=== PATIENT | female | born 1990 | race Caucasian/White ===

== ENCOUNTER 2018-07-28 19:19 | Emergency (ER) | payer BC ==
[2018-07-28 19:35] VITALS: BP 126/78; PULSE 79; TEMP 97.6; BMI 32.9
--- NOTE | 2018-07-28 20:23 | PDOC ---
History of Present Illness - General History Source: Patient Exam Limitations: No Limitations - History of Present Illness Initial Comments: 07/28/18 21:04 The patient is a 27 year old female at about 6 weeks gestation, with a significant PMH of asthma who presents to the emergency department with spotting and cramping beginning this afternoon. Patients LMP early May. Patient states she has an appointment to see a NAIL MILL WORKER for current . The patient denies chest pain, shortness of breath, headache and dizziness. Denies fever, chills, nausea, vomit, diarrhea and constipation. Denies dysuria, frequency, urgency and hematuria. Allergies: NKA Past surgical history: cystectomy from ovary during Social history: None reported <Brit Lu - Last Filed: 07/28/18 21:04> <Lashon Nair - Last Filed: 07/28/18 22:37> - General Chief Complaint: Vaginal Bleeding Stated Complaint: VAGINAL BLEEDING Time Seen by Provider: 07/28/18 19:48 Past History <Brit Lu - Last Filed: 07/28/18 21:04> - Suicide/Smoking/Psychosocial Hx Smoking History: Never smoked Have you smoked in the past 12 months: No Information on smoking cessation initiated: No Hx Alcohol Use: No Drug/Substance Use Hx: No <Lashon Nair - Last Filed: 07/28/18 22:37> - Past Medical History Allergies/Adverse Reactions: Allergies Allergy/AdvReac Type Severity Reaction Status Date / Time No Known Allergies Allergy Verified 07/28/18 19:33 Home Medications: Ambulatory Orders NK [No Known Home Medication] 07/28/18 *Physical Exam - Vital Signs Last Vital Signs Temp Pulse Resp BP Pulse Ox 97.6 F 79 18 126/78 100 07/28/18 19:33 07/28/18 19:33 07/28/18 19:33 07/28/18 19:33 07/28/18 19:33 - Physical Exam Comments: 07/28/18 21:04 GENERAL: Awake, alert, and fully oriented, in no acute distress HEAD: No signs of trauma EYES: PERRLA, EOMI, sclera anicteric, conjunctiva clear ENT: Auricles normal inspection, hearing grossly normal, nares patent, oropharynx clear without exudates. Moist mucosa NECK: Normal ROM, supple, no lymphadenopathy, JVD, or masses LUNGS: Breath sounds equal, clear to auscultation bilaterally. No wheezes, and no crackles HEART: Regular rate and rhythm, normal S1 and S2, no murmurs, rubs or gallops VAGINAL: (+)small amount of dark blood visualized in the os. No active bleeding. No adnexal tenderness. ABDOMEN: Soft, nontender, normoactive bowel sounds. No guarding, no rebound. No masses EXTREMITIES: Normal range of motion, no edema. No clubbing or cyanosis. No cords, erythema, or tenderness NEUROLOGICAL: Cranial nerves II through XII grossly intact. Normal speech, normal gait SKIN: Warm, Dry, normal turgor, no rashes or lesions noted. <Brit Lu - Last Filed: 07/28/18 21:04> - Vital Signs Last Vital Signs Temp Pulse Resp BP Pulse Ox 97.6 F 79 18 126/78 100 07/28/18 19:33 07/28/18 19:33 07/28/18 19:33 07/28/18 19:33 07/28/18 19:33 <Lashon Nair - Last Filed: 07/28/18 22:37> Moderate Sedation - Procedure Monitoring Vital Signs: Procedure Monitoring Vital Signs Temperature 97.6 F 07/28/18 19:33 Pulse Rate 79 07/28/18 19:33 Respiratory Rate 18 07/28/18 19:33 Blood Pressure 126/78 07/28/18 19:33 O2 Sat by Pulse Oximetry (%) 100 07/28/18 19:33 <Brit Lu - Last Filed: 07/28/18 21:04> - Procedure Monitoring Vital Signs: Procedure Monitoring Vital Signs Temperature 97.6 F 07/28/18 19:33 Pulse Rate 79 07/28/18 19:33 Respiratory Rate 18 07/28/18 19:33 Blood Pressure 126/78 07/28/18 19:33 O2 Sat by Pulse Oximetry (%) 100 07/28/18 19:33 <Lashon Nair - Last Filed: 07/28/18 22:37> ED Treatment Course - LABORATORY CBC & Chemistry Diagram: 07/28/18 20:22 07/28/18 20:22 - ADDITIONAL ORDERS Additional order review: Laboratory Results 07/28/18 20:22 Urine Color Yellow Urine Appearance Slcloudy Urine pH 5.0 Ur Specific [place] 1.031 Urine Protein 1+ H Urine Glucose (UA) Negative Urine Ketones Negative Urine Blood 3+ H Urine Nitrite Negative Urine Bilirubin Negative Urine Urobilinogen 2.0 H Ur Leukocyte Esterase Negative Urine WBC (Auto) 2 Urine RBC (Auto) 106 Ur Epithelial Cells Few Urine Bacteria Rare Urine Mucus Few 07/28/18 20:22 RBC 3.91 MCV 76.9 L MCHC 31.8 L RDW 17.8 H MPV 8.3 Neutrophils % 36.6 L Lymphocytes % 49.5 H Monocytes % 5.1 Eosinophils % 8.1 H Basophils % 0.7 <Brit Lu - Last Filed: 07/28/18 21:04> - LABORATORY CBC & Chemistry Diagram: 07/28/18 20:22 07/28/18 20:22 <Lashon Nair - Last Filed: 07/28/18 22:37> Medical Decision Making - Medical Decision Making 07/28/18 20:11 a/p: 27yo female at around 6 weeks gestation with cramping and spotting today -hx of last preg complicated by a cyst on the ovary that needed removal -has not seen NAIL MILL WORKER for this preg -no dysuria -nontoxic appearing -will send labs, ua, tvus 07/28/18 22:05 o+ on labs beta 42 no IUP on ultrasound, but thickened endometrium 07/28/18 22:17 discussed results with the patient pt will need a repeat beta in 2 days has a follow up lye boiler appt in 2 weeks answered all quesitons pt is stable for dc to home and repeat beta in 2 days <Lashon Nair - Last Filed: 07/28/18 22:37> *DC/Admit/Observation/Transfer - Attestations Scribe Attestion: 07/28/18 21:05 Documentation prepared by Brit Lu, acting as emergency medical dispatcher for Lashon Nair DO. <Brit Lu - Last Filed: 07/28/18 21:04> - Discharge Dispostion Decision to Admit order: No - Attestations Physician Attestion: 07/28/18 22:37 I, Dr. Lashon Nair, DO, attest that this document has been prepared under my direction and personally reviewed by me in its entirety. I further attest, that it accurately reflects all work, treatment, procedures and medical decision -making performed by me. <Lashon Nair - Last Filed: 07/28/18 22:37> Diagnosis at time of Disposition: Threatened in first trimester - Discharge Dispostion Disposition: HOME Condition at time of disposition: Stable - Referrals Referrals: ON STAFF,NOT [Primary Care Provider] - Lexie Bradley MD [Staff Physician] - - Patient Instructions Printed Discharge Instructions: DI for Threatened Additional Instructions: Please follow up in the ED in 2 days for a repeat Beta HCG. Please keep your appointment with your INFORMATION TECHNOLOGY TECHNICIAN. If you start to bleed more than 2 pads an hour for more than 2 hours please return to the ED immediately. Please return to the ED with any further concerns or complaints.
[2018-07-28 20:54] LABS: BASO % 0.7 % (0-2.0); EOS % 8.1 % (0-4.5); HEMOGLOBIN 9.6 GM/dL (10.7-15.3); LYMPH % 49.5 % (8-40); MCH 24.4 pg (25.7-33.7); MCHC 31.8 g/dl (32.0-36.0); MEAN CELL VOLUME 76.9 fl (80-96); MEAN PLT VOLUME 8.3 fl (7.5-11.1); MONO % 5.1 % (3.8-10.2); NEUT % 36.6 % (42.8-82.8); PLATELET COUNT 252 K/MM3 (134-434); RBC 3.91 M/mm3 (3.60-5.2); RDW 17.8 % (11.6-15.6); WHITE BLOOD COUNT 4.7 K/mm3 (4.0-10.0)
[2018-07-28 20:55] LABS: URINE APPEARANCE SLCLOUDY; URINE BILIRUBIN NEGATIVE (<2.0 mg/dL); URINE COLOR YELLOW; URINE GLUCOSE (UA) NEGATIVE (NEGATIVE); URINE KETONE NEGATIVE (NEGATIVE); URINE LEUK ESTERASE NEGATIVE (NEGATIVE); URINE NITRITE NEGATIVE (NEGATIVE); URINE PROTEIN 1+ (NEGATIVE)
[2018-07-28 20:58] LABS: EPI CELLS FEW /HPF (FEW); URINE BACTERIA RARE /hpf (NONE SEEN); URINE MUCUS FEW
[2018-07-28 21:09] LABS: ALBUMIN 3.7 g/dl (3.4-5.0); ALK PHOS 68 U/L (45-117); ANION GAP 7 MMOL/L (8-16); BILIRUBIN,TOTAL 0.4 mg/dL (0.2-1); BLOOD UREA NITROGEN 14 mg/dL (7-18); CALCIUM 8.7 mg/dL (8.5-10.1); CHLORIDE 110 mmol/L (98-107); CO2 24 mmol/L (21-32); CREATININE 0.7 mg/dL (0.55-1.3); GLUCOSE,RANDOM 92 mg/dL (74-106); POTASSIUM 4.1 mmol/L (3.5-5.1); SGOT/AST 23 U/L (15-37); SGPT/ALT 24 U/L (13-61); SODIUM 140 mmol/L (136-145)
== END 2018-07-28 22:44 | disposition home or self-care (01) ==
LOC: JER 19:19
DX: O26.891 Other specified pregnancy related conditions, first trimester (principal); O20.0 Threatened abortion; Z3A.01 Less than 8 weeks gestation of pregnancy
CPT/HCPCS: 36415; 76817-TC; 80053; 81003; 81015; 84702; 85025; 86850; 86900; 86901; 99282-25

== ENCOUNTER 2018-08-01 21:40 | Emergency (ER) | payer BC ==
[2018-08-01 21:47] VITALS: BP 124/69; PULSE 78; TEMP 98; BMI 32.9
[2018-08-01] MEDS ORDERED: IBUPROFEN 400 MG TABLET (FP) PO ONE (22:27)
[2018-08-01] MEDS ORDERED: diazePAM 5 MG TABLET PO ONE (22:27)
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
== END 2018-08-01 22:55 | disposition home or self-care (01) ==
LOC: JERFT 21:40
DX: S16.1XXA Strain of muscle, fascia and tendon at neck level, initial encounter (principal); M62.830 Muscle spasm of back; V43.62XA Car passenger injured in collision with other type car in traffic accident, initial encounter; Y92.414 Local residential or business street as the place of occurrence of the external cause; Y93.89 Activity, other specified; Y99.8 Other external cause status
CPT/HCPCS: 99281-25

== ENCOUNTER 2019-12-17 01:55 | Inpatient (IN) | payer BC ==
[2019-12-17 02:55] LABS: BASO % 0.2 % (0-2.0); HEMATOCRIT 29.8 % (32.4-45.2); HEMOGLOBIN 9.2 GM/dL (10.7-15.3); LYMPH % 25.4 % (8-40); MCH 24.2 pg (25.7-33.7); MCHC 30.8 g/dl (32.0-36.0); MEAN CELL VOLUME 78.4 fl (80-96); MONO % 5.6 % (3.8-10.2); NEUT % 67.8 % (42.8-82.8); PLATELET COUNT 256 K/MM3 (134-434); RDW 16.9 % (11.6-15.6); WHITE BLOOD COUNT 9.3 K/mm3 (4.0-10.0)
--- NOTE | 2019-12-17 03:02 | HP ---
Past Medical History - Admission Chief Complaint: Vaginal delivery History of Present Illness: 29 yo @ 39 weeks gestation, EDC 12/24/19, brought by EMT after home delivery. Upon admission placenta was in situ and patient was c/o abdominal cramps and heavy vaginal bleeding. History Source: Patient Limitations to Obtaining History: No Limitations - Past Medical History ...: 3 ...Para: 1 ...EDC by [facility]: 12/24/19 Heme/Onc: Yes: Anemia - Past Surgical History Hx Myomectomy: No Hx Transabdominal Cerclage: No Additional Surgical History: Gastric sleeve - Smoking History Smoking history: Never smoked Have you smoked in the past 12 months: No - Alcohol/Substance Use Hx Alcohol Use: No - Social History Usual Living Arrangement: Yes: With Significant Other Do you think of yourself as: Straight/Heterosexual History of Recent Travel: No Home Medications - Allergies Allergies/Adverse Reactions: Allergies Allergy/AdvReac Type Severity Reaction Status Date / Time No Known Allergies Allergy Verified 07/28/18 19:33 - Home Medications Home Medications: Ambulatory Orders Methocarbamol [Robaxin -] 1,500 mg PO Q8H PRN #30 tablet 08/01/18 Family Medical History Family History: Unremarkable Review of Systems - Review of Systems Constitutional: reports: No Symptoms Eyes: reports: No Symptoms HENT: reports: No Symptoms Neck: reports: No Symptoms Cardiovascular: reports: No Symptoms Respiratory: reports: No Symptoms Gastrointestinal: reports: No Symptoms Genitourinary: reports: Pain, Vaginal Bleeding Breasts: reports: No Symptoms Reported Musculoskeletal: reports: No Symptoms Neurological: reports: No Symptoms Psychiatric: reports: No Symptoms Pain Intensity: 7 Physical Exam - Maternity Constitutional: Yes: Mild Distress Eyes: Yes: Conjunctiva Clear HENT: Yes: Atraumatic Neck: Yes: Supple, Trachea Midline Cardiovascular: Yes: Regular Rate and Rhythm Lungs: Clear to auscultation - Vaginal Exam/OB Vaginal Bleeding: Yes - Physical Exam Musculoskeletal: Yes: WNL Extremities: Yes: WNL Psychiatric: Yes: Alert, Oriented - Labs Lab Results: CBC, BMP 12/17/19 02:15 Problem List - Problems (1) Status post normal delivery Problems reviewed: Yes Assessment/Plan Status post vaginal delivery Admit for placenta delivery Laceration repair
[2019-12-17] MEDS ORDERED: BENZOCAINE 28 GM HEMORRHOIDAL OINTMENT TP PRN (03:06)
[2019-12-17] MEDS ORDERED: BISACODYL 10 MG SUPP.RECT RC PRN (03:06)
[2019-12-17] MEDS ORDERED: BENZOCAINE 20% 57 GM BOTTLE TP PRN (03:06)
[2019-12-17] MEDS ORDERED: WITCH HAZEL 50% (TUCKS) 40 PAD/JAR PAD TP PRN (03:06)
[2019-12-17] MEDS ORDERED: METHYLERGONOVINE MALEATE 0.2 MG/1 ML AMP IM PRN (03:06)
--- NOTE | 2019-12-17 03:06 | PN ---
Delivery - Delivery Vaginal Delivery: Spontaneous Episiotomy/Laceration: 2nd degree EBL (cc): 400 Remarks - Remarks Remarks: Normal vaginal delivery of a live girl over second degree laceration. Baby delivered at home. Placenta delivery at the hospital. Second degree laceration repaired with 2.0 Chromic and 2.0 Biosyn. Mother in stable condition.
[2019-12-17] MEDS ORDERED: MEPERIDINE HCL 25 MG/ML VIAL IVPUSH ONE (03:07)
[2019-12-17 03:12] LABS: INR 0.92 (0.83-1.09); PROTHROMBIN TIME (PATIENT) 10.8 SEC (9.7-13.0)
[2019-12-17 03:13] LABS: CALCIUM 8.3 mg/dL (8.5-10.1); CREATININE 0.8 mg/dL (0.55-1.3); POTASSIUM 3.9 mmol/L (3.5-5.1)
[2019-12-17 03:14] LABS: ACTIVATED PTT 23.3 SECONDS (25.2-36.5)
[2019-12-17] MEDS: IBUPROFEN 600 MG TABLET (FP) PO PRN ×5 (03:39→21:03)
[2019-12-17 03:58] VITALS: BMI 40.3
[2019-12-17] MEDS: ACETAMINOPHEN 325 MG TABLET (FP) PO PRN ×4 (06:36→21:02)
[2019-12-17 09:02] LABS: COCAINE, UR NEGATIVE ng/ml (CUTOFF=300); METHADONE, UR NEGATIVE ng/ml (CUTOFF=300); OPIATES, URI NEGATIVE ng/ml (CUTOFF=300); PHENCYCLIDINE,URINE NEGATIVE ng/ml (CUTOFF=25); URINE BARBITURATES NEGATIVE ng/ml (CUTOFF=200); URINE BENZODIAZEPINES NEGATIVE ng/ml (CUTOFF=200)
[2019-12-17 09:03] LABS: URINE AMPHETAMINES NEGATIVE ng/ml (CUTOFF=500)
[2019-12-17] MEDS: FERROUS SO4 325 MG TABLET (FP) PO SCH ×2 (10:29→21:02)
[2019-12-17] MEDS: PRENATAL VITAMINS W/ FOLIC ACID TABLET (FP) PO SCH (10:29)
[2019-12-18] MEDS: IBUPROFEN 600 MG TABLET (FP) PO PRN ×4 (03:20→21:21)
[2019-12-18] MEDS: ACETAMINOPHEN 325 MG TABLET (FP) PO PRN ×4 (03:20→21:22)
--- NOTE | 2019-12-18 07:22 | DS ---
Physical Exam-RESERVATIONS MANAGER Vital Signs: Vital Signs Temperature 97.9 F 12/17/19 22:00 Pulse Rate 78 12/17/19 22:00 Respiratory Rate 18 12/17/19 22:00 Blood Pressure 123/68 12/17/19 22:00 O2 Sat by Pulse Oximetry (%) Constitutional: Yes: Well Nourished Eyes: Yes: Conjunctiva Clear HENT: Yes: Atraumatic Neck: Yes: Supple Cardiovascular: Yes: Regular Rate and Rhythm Respiratory: Yes: Regular Gastrointestinal: Yes: Normal Bowel Sounds ...Rectal Exam: Yes: WNL Renal/: Yes: WNL Pelvis: Yes: WNL External Genitalia: Yes: Normal Vaginal Exam: Yes: Bleeding Cervix: Yes: Bleeding Uterus: Yes: Firm ....Post : Yes: Uterus firm, Moderate lochia serosa Breast(s): Yes: WNL Musculoskeletal: Yes: WNL Extremities: Yes: WNL Neurological: Yes: Alert, Oriented ...Motor Strength: WNL Psychiatric: Yes: Alert, Oriented Labs: CBC, BMP 12/17/19 02:15 12/17/19 02:15 Delivery - Delivery Vaginal Delivery: Spontaneous Type of Anesthesia: Local Episiotomy/Laceration: 2nd degree EBL (cc): 400 Delivery, Single - Stages of Labor Date 1st Stage Initiatied: 12/17/19 Time 1st Stage Initiated: 01:10 Date 2nd Stage Initiated: 12/17/19 Time 2nd Stage Initiated: 01:32 Date of Delivery: 12/17/19 Time of Delivery: 01:32 Time Placenta Delivered: 02:30 - Condition of Gender: Female Weight: 6 lb 12.001 oz Total Hours ROM (Hrs/Mins): 20 min - Home Delivery on Admit Total Score: 9 - Feeding Plan Initial Plan: Elected not to breastfeed exclusively throughout hospitalization Discharge Summary Problems reviewed: Yes Reason For Visit: HOME DELIVERY ADMIT Current Active Problems Status post normal delivery (Acute) Procedures: Principal: Delivery of placenta Other Procedures: Laceration repair Hospital Course: Routine care Health Concerns: None Plan of Treatment: Analgesia as needed F/U with MD in 6 weeks Goals: Resume regular activities in 6 weeks Condition: Good - Instructions Diet, Activity, Other Instructions: Regular diet No douching, no sexual intercourse x 6 weeks F/U with MD in 6 weeks Disposition: HOME - Home Medications Comprehensive Discharge Medication List: Ambulatory Orders Methocarbamol [Robaxin -] 1,500 mg PO Q8H PRN #30 tablet 08/01/18
[2019-12-18 07:50] LABS: BASO % 0.4 % (0-2.0); EOS % 1.7 % (0-4.5); HEMATOCRIT 24.5 % (32.4-45.2); HEMOGLOBIN 7.4 GM/dL (10.7-15.3); LYMPH % 33.1 % (8-40); MCH 23.4 pg (25.7-33.7); MCHC 30.1 g/dl (32.0-36.0); MEAN CELL VOLUME 77.8 fl (80-96); MEAN PLT VOLUME 8.5 fl (7.5-11.1); MONO % 4.7 % (3.8-10.2); NEUT % 60.1 % (42.8-82.8); PLATELET COUNT 203 K/MM3 (134-434); RBC 3.15 M/mm3 (3.60-5.2); RDW 17.1 % (11.6-15.6); WHITE BLOOD COUNT 7.8 K/mm3 (4.0-10.0)
[2019-12-18] MEDS: PRENATAL VITAMINS W/ FOLIC ACID TABLET (FP) PO SCH (09:39)
[2019-12-18] MEDS: FERROUS SO4 325 MG TABLET (FP) PO SCH ×2 (09:41→21:22)
[2019-12-18] MEDS: OXYTOCIN 20 UNITS in 0.9% NS 20 UNIT/1,000 ML INFUS.BAG IV SCH (11:07)
[2019-12-18] MEDS: DEXTROSE 5%-LACTATED RINGERS 1,000 ML IV SCH (11:07)
[2019-12-18] MEDS ORDERED: SENNOSIDES/DOCUSATE COMBO (SENNA PLUS) TABLET (UD) PO PRN (22:00)
[2019-12-19] MEDS: ACETAMINOPHEN 325 MG TABLET (FP) PO PRN (08:10)
[2019-12-19] MEDS: IBUPROFEN 600 MG TABLET (FP) PO PRN (08:11)
[2019-12-19] MEDS: PRENATAL VITAMINS W/ FOLIC ACID TABLET (FP) PO SCH (09:58)
[2019-12-19] MEDS: FERROUS SO4 325 MG TABLET (FP) PO SCH (09:58)
--- NOTE | 2019-12-19 10:00 | PN ---
Progress Note (short form) - Note Progress Note: Patient seen and evaluated. Doing well. No dizziness. She opts for daily Iron tablets over blood transfusion. Feriva prescribed. F/U with MD in 4 weeks
[2019-12-19 10:58] VITALS: BP 118/70; PULSE 68; TEMP 97.9
== END 2019-12-19 13:45 | disposition home or self-care (01) | DRG 807 ==
LOC: JLDR 01:55 → J3N 04:59 → J3W 15:39
PROVIDERS: ADMIT Obstetrics & Gynecology; ATTEND Obstetrics & Gynecology
PROC: 10E0XZZ Delivery of Products of Conception, External Approach (ICD-10-PCS; principal; 2019-12-17)
PROC: 0KQM0ZZ Repair Perineum Muscle, Open Approach (ICD-10-PCS; 2019-12-17)
DX: O70.1 Second degree perineal laceration during delivery (principal); Z37.0 Single live birth; O99.02 Anemia complicating childbirth; D64.9 Anemia, unspecified; Z3A.39 39 weeks gestation of pregnancy; Z98.84 Bariatric surgery status
CPT/HCPCS: 36415; 59409; 80048; 80307; 85025; 85610; 85730; 86780; 86850; 86900; 86901; 87340; 87389; U0003